=== PATIENT | female | born 1945 | race Two or more races ===

== ENCOUNTER → 2017-03-30 | Emergency (ER) | payer OTHER ==
[~2017-03-30] VITALS: Ht 154.9 cm; Wt 59.0 kg
[~2017-03-30] MED LIST: SYNTHROID50 MCG
== END | disposition home or self-care (01) ==
LOC: ER 08:02
DX: B34.9 Viral infection, unspecified (principal); J11.1 Influenza due to unidentified influenza virus with other respiratory manifestations

== ENCOUNTER 2017-04-22 08:52 | Outpatient (CLI) | payer OTHER | END 2017-04-22 08:58 | disposition home or self-care (01) | LOC: RAD 501 08:52 | DX: M54.2 Cervicalgia (principal); M16.12 Unilateral primary osteoarthritis, left hip; Z47.33 Aftercare following explantation of knee joint prosthesis ==

== ENCOUNTER 2019-09-09 20:25 | Emergency (ER) | payer OTHER ==
[~2019-09-09] VITALS: Ht 154.9 cm; Wt 57.6 kg
[2019-09-09] MEDS ORDERED: ZITHROMAX500 MG PO (21:46)
== END 2019-09-09 21:51 | disposition home or self-care (01) ==
LOC: ER 20:25
DX: J02.9 Acute pharyngitis, unspecified (principal); Z03.818 Encounter for observation for suspected exposure to other biological agents ruled out; R05 Cough

== ENCOUNTER 2019-09-15 11:07 | Emergency (ER) | payer OTHER ==
[~2019-09-15] VITALS: Ht 154.9 cm; Wt 56.2 kg
[~2019-09-15 11:07] MED LIST changes: +ZITHROMAX500 MG PO
[2019-09-15] MEDS ORDERED: PEPCID AC20 MG PO (14:33)
[2019-09-15] MEDS ORDERED: CARAFATE1 GM PO (14:33)
== END 2019-09-15 14:47 | disposition home or self-care (01) ==
LOC: ER 11:07
DX: K29.60 Other gastritis without bleeding (principal); Z03.818 Encounter for observation for suspected exposure to other biological agents ruled out; R10.13 Epigastric pain; R11.2 Nausea with vomiting, unspecified

== ENCOUNTER 2019-12-08 14:31 | Emergency (ER) | payer OTHER ==
[~2019-12-08] VITALS: Ht 152.4 cm; Wt 55.3 kg
[~2019-12-08 14:31] MED LIST changes: +CARAFATE1 GM PO; +PEPCID AC20 MG PO
[2019-12-08] MEDS ORDERED: SYNTHROID50 MCG (14:37)
[2019-12-08] MEDS ORDERED: ULTRAM50 MG PO (16:00)
== END 2019-12-08 17:07 | disposition home or self-care (01) ==
LOC: ER 14:31
DX: S52.591A Other fractures of lower end of right radius, initial encounter for closed fracture (principal); S00.83XA Contusion of other part of head, initial encounter; W18.39XA Other fall on same level, initial encounter; Y93.89 Activity, other specified; Y92.018 Other place in single-family (private) house as the place of occurrence of the external cause; Y99.8 Other external cause status

== ENCOUNTER 2019-12-15 05:53 | Day surgery (SDC) | payer OTHER ==
[~2019-12-15 05:53] MED LIST changes: +ULTRAM50 MG PO
== END 2019-12-15 12:25 | disposition home or self-care (01) ==
LOC: CIR.AMB 05:53
PROVIDERS: ATTEND Orthopaedic Surgery
DX: S52.571A Other intraarticular fracture of lower end of right radius, initial encounter for closed fracture (principal); M24.531 Contracture, right wrist; Z20.828 Contact with and (suspected) exposure to other viral communicable diseases
CPT/HCPCS: 20902; 25118; 25280; 25609; C1776

== ENCOUNTER 2020-01-25 08:48 | Outpatient (CLI) | payer OTHER | END 2020-01-25 08:53 | disposition home or self-care (01) | LOC: RAD 08:48 | PROVIDERS: ATTEND Orthopaedic Surgery | DX: S52.531D Colles' fracture of right radius, subsequent encounter for closed fracture with routine healing (principal) ==

== ENCOUNTER 2020-03-14 08:36 | Outpatient (CLI) | payer OTHER | END 2020-03-14 08:46 | disposition home or self-care (01) | LOC: RAD 08:36 | PROVIDERS: ATTEND Orthopaedic Surgery | DX: M25.531 Pain in right wrist (principal); M16.0 Bilateral primary osteoarthritis of hip; S52.531D Colles' fracture of right radius, subsequent encounter for closed fracture with routine healing ==

== ENCOUNTER 2020-04-02 08:55 | Outpatient (CLI) | payer OTHER | END 2020-04-02 09:02 | disposition home or self-care (01) | LOC: LAB 08:55 | PROVIDERS: ATTEND Orthopaedic Surgery | DX: E21.2 Other hyperparathyroidism (principal); E55.9 Vitamin D deficiency, unspecified; M85.88 Other specified disorders of bone density and structure, other site; E88.89 Other specified metabolic disorders; M81.8 Other osteoporosis without current pathological fracture; E56.1 Deficiency of vitamin K; M81.0 Age-related osteoporosis without current pathological fracture ==

== ENCOUNTER 2020-11-14 08:46 | Outpatient (CLI) | payer OTHER | END 2020-11-14 15:00 | disposition home or self-care (01) | LOC: LAB 08:46 | PROVIDERS: ATTEND Orthopaedic Surgery | DX: E83.42 Hypomagnesemia (principal); E88.89 Other specified metabolic disorders; M81.8 Other osteoporosis without current pathological fracture; E56.1 Deficiency of vitamin K ==

== ENCOUNTER 2021-11-25 08:45 | Outpatient (CLI) | payer OTHER | END 2021-11-25 08:46 | disposition home or self-care (01) | LOC: LAB 08:45 | PROVIDERS: ATTEND Orthopaedic Surgery | DX: M85.9 Disorder of bone density and structure, unspecified (principal); E55.9 Vitamin D deficiency, unspecified; E56.1 Deficiency of vitamin K; E21.3 Hyperparathyroidism, unspecified; M81.8 Other osteoporosis without current pathological fracture ==

== ENCOUNTER 2022-03-02 09:05 | Outpatient (CLI) | payer OTHER ==
[2022-03-02] MEDS ORDERED: TYMLOS1.56 ML SQ (13:08)
== END 2022-03-02 10:52 | disposition home or self-care (01) ==
LOC: LAB 09:05
PROVIDERS: ATTEND Orthopaedic Surgery
DX: D64.9 Anemia, unspecified (principal); D68.8 Other specified coagulation defects; N39.0 Urinary tract infection, site not specified; Z86.14 Personal history of Methicillin resistant Staphylococcus aureus infection; E11.9 Type 2 diabetes mellitus without complications; A49.02 Methicillin resistant Staphylococcus aureus infection, unspecified site; Z76.89 Persons encountering health services in other specified circumstances; I10 Essential (primary) hypertension; I49.9 Cardiac arrhythmia, unspecified

== ENCOUNTER 2022-03-13 05:20 | Day surgery (SDC) | payer OTHER ==
[~2022-03-13 05:20] MED LIST changes: +SYNTHROID50 MCG PO; +TYMLOS1.56 ML SQ
== END 2022-03-13 14:30 | disposition home or self-care (01) ==
LOC: CIR.AMB 05:20
PROVIDERS: ATTEND Orthopaedic Surgery
DX: M23.251 Derangement of posterior horn of lateral meniscus due to old tear or injury, right knee (principal); M17.11 Unilateral primary osteoarthritis, right knee; M65.861 Other synovitis and tenosynovitis, right lower leg; M22.41 Chondromalacia patellae, right knee; S83.091A Other subluxation of right patella, initial encounter; Z88.6 Allergy status to analgesic agent; D64.9 Anemia, unspecified

== ENCOUNTER → 2022-07-06 09:03 | Outpatient (CLI) | payer OTHER | END | disposition home or self-care (01) | LOC: LAB 09:03 | PROVIDERS: ATTEND Orthopaedic Surgery | DX: M85.9 Disorder of bone density and structure, unspecified (principal); E83.42 Hypomagnesemia; E56.1 Deficiency of vitamin K; E88.89 Other specified metabolic disorders; M81.8 Other osteoporosis without current pathological fracture ==

== ENCOUNTER → 2023-10-29 08:10 | Outpatient (CLI) | payer OTHER ==
[2023-10-29 09:39] LABS: ALBUMIN 3.5 gm/dL (3.4-5.0); BILIRUBIN TOTAL 0.54 mg/dL (0.3-1.2); CALCIUM 9.6 mg/dL (8.5-10.1); CREATININE SERUM 0.66 mg/dL (0.55-1.02); GFR 86.39; GLOBULINA 3.5 G/DL (2.4-3.5); MAGNESIUM 2.4 mg/dL (1.8-2.4); PHOSPHOROUS 3.5 mg/dL (2.5-4.9); POTASSIUM 4.14 mEq/L (3.5-5.1)
[2023-10-30 13:06] LABS: CALCIUM IONIZED 5.3 mg/dL (4.5-5.6)
[2023-11-03 19:10] LABS: VITAMIN K 1.22 ng/mL (0.10-2.20)
== END | disposition home or self-care (01) ==
LOC: LAB 08:10
PROVIDERS: ATTEND Orthopaedic Surgery
DX: E55.9 Vitamin D deficiency, unspecified (principal); M85.9 Disorder of bone density and structure, unspecified; E56.1 Deficiency of vitamin K; E21.3 Hyperparathyroidism, unspecified; E88.89 Other specified metabolic disorders; M81.8 Other osteoporosis without current pathological fracture

== ENCOUNTER 2024-03-21 12:49 | Outpatient (CLI) | payer OTHER | END 2024-03-21 12:52 | disposition home or self-care (01) | LOC: RAD 12:49 | PROVIDERS: ATTEND Orthopaedic Surgery | DX: Z96.642 Presence of left artificial hip joint (principal) ==

== ENCOUNTER 2024-11-08 09:51 | Emergency (ER) | payer OTHER ==
[~2024-11-08] VITALS: Ht 152.4 cm; Wt 56.7 kg
[2024-11-08] MEDS ORDERED: 0.9 % SODIUM CHLORIDE 1,000 ML IV ONE (11:45)
[2024-11-08] MEDS ORDERED: FAMOtidine 10 MG/ML (4ML VIAL) IV ONE (11:45)
[2024-11-08] MEDS ORDERED: MORPHINE SULFATE 2 MG/ML SYRINGE IV ONE (11:45)
[2024-11-08 12:15] LABS: BASO % 0.8 % (0.1-1.2); EOS # 0.02 (0.04-0.54); EOS % 0.3 % (0.7-7.0); LYMPH # 2.14 (1.18-3.74); LYMPH % 28.8 % (19.3-53.1); MEAN PLATELET VOLUME 11.50 fl (9.4-12.4); MONO # 0.51 (0.24-0.82); MONO % 6.9 % (4.7-12.5); NEUT # 4.69 (1.56-6.13); NEUT % 62.9 % (34.0-71.1); RED CELL DISTRIBUTION WIDTH 12.9 % (11.6-14.4)
[2024-11-08 12:58] LABS: URINE APPEARANCE Clear; URINE BILIRRUBIN Negative (NEGATIVE); URINE BLOOD Negative; URINE COLOR Yellow; URINE GLUCOSE Negative (NEGATIVE); URINE KETONE Negative (NEGATIVE); URINE LEUKOCYTE Moderate; URINE NITRATE Negative; URINE PROTEIN Negative (NEGATIVE); URINE UROBILINOGEN 0.2 E.U./dl
[2024-11-08 12:59] LABS: ALT/SGPT 33.0 U/L (12-78); AST/SGOT 22.0 U/L (15-37); BILIRUBIN TOTAL 0.63 mg/dL (0.3-1.2); BUN CREA RATIO 23.0 (7.0-25.0); CREATININE SERUM 0.6 mg/dL (0.55-1.02); GFR 96.19; GLOBULINA 4.4 G/DL (2.4-3.5); GLUCOSE FASTING 100.0 mg/dL (65-100); INR 1.0; OSMOLALITY SERUM 287.0 MOSM/KG (275-295)
[2024-11-08 13:00] LABS: URINE BACTERIA 43.1 uL (0.0-1933); URINE EPITHELIAL CELLS 17.5 uL (0.0-38.8); URINE RBC 3.3 uL (0.0-20.8); URINE WBC 187.4 uL (0.0-23.2)
[2024-11-08 13:05] LABS: URINE CAST 0.29 uL (0.0-1.40)
[2024-11-08] MEDS ORDERED: CEFTRIAXONE SODIUM 1,000 MG VIAL IV ONE (14:00)
== END 2024-11-08 19:17 | disposition home or self-care (01) ==
LOC: ER 09:51
PROVIDERS: General Practice
DX: R10.9 Unspecified abdominal pain (principal); E03.8 Other specified hypothyroidism; Z88.6 Allergy status to analgesic agent
CPT/HCPCS: 36415; 74177; 96365; 96366; 99284; J2270; J3490; J7030; Q9965